=== PATIENT | female | born 1950 | race Caucasian/White ===

== ENCOUNTER → 2019-10-11 14:29 | Outpatient (CLI) | payer MEDICARE, OTHER, SELFPAY | PROVIDERS: PCP Family Medicine; Visit Provider Internal Medicine | DX: I10 Essential (primary) hypertension (principal); R42 Dizziness and giddiness; R55 Syncope and collapse | CPT/HCPCS: 93270 ==

== ENCOUNTER → 2019-10-21 09:15 | Outpatient (CLI) | payer MEDICARE, OTHER, SELFPAY ==
--- NOTE | 2019-10-21 09:16 | CA_ITS ---
APPROVED REPORT EXAM: Comprehensive 2D, Doppler, and color-flow Echocardiogram Technical Staff Engineer: Bel Frances RDCS Ht: 5 ft 6 in Wt: 128lbs BSA: 1.65 BP: 142/81 mmHg Indications: ABN EKG,PALPS,RENTERIA,HTN 2D Dimensions LVOT 2.05 cm (M/F) 1.5-2.5 M-Mode Dimensions RVDd 2.58 cm (0.9-2.6) LVDd 4.95 cm (3.5-5.7) LVDs 3.38 cm (3.5-5.7) IVSd 0.54 cm (0.6-1.1) PWd 0.57 cm (0.6-1.1) EF (Teich) 59.50% FS 31.70% EDV (Teich) 115.50 mL ESV (Teich) 46.80 mL LV Diastology E/A Ratio 1.15 Mitral Valve MV A Velocity 62.00 (40-130 cm/s) Left Ventricle Left atrium is mildly enlarged, left ventricle is normal size, there is no concentric left ventricular hypertrophy, visually estimated ejection fraction 55% with no regional wall motion abnormality, diastolic parameters are within normal range. Right Ventricle Right atrium and right ventricle are normal size and contractility. Aortic Valve Aortic valve is minimally thickened and fibrosed, there is no aortic stenosis or aortic insufficiency. Mitral Valve Mitral valve is grossly normal, there is mild mitral regurgitation. Tricuspid Valve Tricuspid valve grossly normal, there is mild tricuspid regurgitation, tricuspid regurgitation jet velocity is inadequate for calculation of the right ventricular systolic pressure. Pulmonic Valve Pulmonic valve is poorly visualized. Great Vessels Aortic root is normal size. Pericardium No significant pericardial effusion noted. Conclusion 1. Mildly enlarged left atrium, normal left ventricular size, visually estimated ejection fraction 55% with no regional wall motion abnormality, diastolic parameters are within normal range. 2. Mild mitral and tricuspid regurgitation. 3. No significant pericardial effusion noted. Electronically signed by : Shayan Garcia, 10/21/2019 13:49:34
== END ==
PROVIDERS: PCP Family Medicine; Visit Provider Internal Medicine Cardiovascular Disease
DX: I10 Essential (primary) hypertension (principal); R00.2 Palpitations; R42 Dizziness and giddiness; R53.83 Other fatigue
CPT/HCPCS: 93306

== ENCOUNTER → 2022-11-25 08:19 | Outpatient (CLI) | payer MEDICARE, OTHER, SELFPAY ==
[2022-11-25 09:03] LABS: Basophils # 0.1 K/mm3 (0-0.2); Basophils % 1.1 % (0.1-2.0); Eosinophils # 0.2 K/mm3 (0.0-0.4); Eosinophils % 2.1 % (0.1-12.0); Hemoglobin 14.5 g/dL (12.2-16.2); Lymphocytes # 2.8 K/mm3 (0.7-4.5); Lymphocytes % 35.3 % (10-50); Mean Corpuscular HGB Conc 35.3 g/dL (31.8-35.4); Mean Corpuscular Hemoglobin 33.1 pg (27.0-31.2); Mean Corpuscular Volume 93.8 fl (81-99); Mean Platelet Volume 8.9 fl (7.4-10.4); Monocytes # 0.4 K/mm3 (0.1-1.0); Monocytes % 5.7 % (1.7-9.3); Neutrophils # 4.4 K/mm3 (1.8-7.8); Neutrophils % 55.7 % (37.0-80.0); Platelet Count 226 K/mm3 (142-424); Red Blood Count 4.37 M/mm3 (4.20-5.40); White Blood Count 7.8 K/mm3 (4.8-10.8)
[2022-11-25 09:49] LABS: Alanine Aminotransferase 25 U/L (12-78); Albumin Level 4.7 g/dl (3.5-5.0); Albumin/Globulin Ratio 1.7 (1.1-1.8); Alkaline Phosphatase 51 U/L (38-126); Anion Gap 12.3 mEq/L (5-15); Aspartate Amino Transferase 49 U/L (14-36); Blood Urea Nitrogen 20 mg/dl (7-17); Calcium 9.5 mg/dl (8.4-10.2); Carbon Dioxide 28 mmol/L (22.0-30.0); Chloride 104 mmol/L (98-107); Estimated Glomerular Filt Rate 62 ml/min (>60); GFR (African American) 75 ML/MIN (>60); Globulin 2.8 g/dL (1.3-3.2); Glucose 91 mg/dl (74-100); Potassium 4.3 mmoL/L (3.5-5.1); Sodium 140 mmol/L (136-145); Total Protein,Serum 7.5 g/dl (6.3-8.2)
[2022-11-26 12:11] LABS: C-Reactive Protein, Cardiac 0.28 mg/L (0.00-3.00)
[2022-12-03 11:56] LABS: LDL-P 2290
[2022-12-03 11:57] LABS: HDL-C 51; LDL-C 213
[2022-12-03 11:58] LABS: Cholesterol, Total 292; Triglycerides 152
[2022-12-03 12:00] LABS: LDL Size 21.6
[2022-12-03 12:01] LABS: LP-IR Score <25
== END ==
PROVIDERS: PCP Family Medicine; Visit Provider Family Medicine
DX: E78.00 Pure hypercholesterolemia, unspecified (principal); I10 Essential (primary) hypertension
CPT/HCPCS: 36415; 80053; 83704; 85025; 86141

== ENCOUNTER 2024-01-01 15:12 | Observation (INO) | payer MEDICARE, OTHER, SELFPAY ==
[2024-01-01] VITALS (24 sets, daily range): BP systolic 142–240; BP diastolic 66–104; PULSE 47–65; RESP 15–18; TEMP 36.3–38.2; O2SAT 93–99; BMI 20.9
[2024-01-01 15:44] LABS: POC Glucose,Bedside 130 (70-110)
--- NOTE | 2024-01-01 15:46 | EXP.UTC ---
Discharge Plan Disposition Patient Disposition: Admitted Condition: Good Clinical Impressions Clinical Impression: Hypertensive emergency, Dizziness Discharge ED Provider: Zachary Hsu [facility] General Chief complaint: Recheck/Abnormal Lab/Rx Stated complaint: high bp dizziness shakey Mode of Arrival: Ambulatory Source of Information: Patient Time Seen by Provider: 01/01/24 15:46 Description of Symptoms (Recalled from Triage Doc. by RN): HTN, ALEMAN AT TIMES, BLURRY VISION AT TIMES, INCREASED STRESS LEVELS HEENT Symptoms (Recalled from RN notes): No Resp Symptoms (Recalled from RN notes): No Skin Symptoms (Recalled from RN notes): No MS Symptoms (Recalled from RN notes): No Functional Status (Recalled from RN notes): WNL History of Present Illness Provider Complaint: Patient states that she has been under some stress States that she sees Cardiology for HTN, states that for the last week she has been seeing that her blood pressure has continued to get higher, having blurry vision on and off, trouble concentrating, and feeling shaky and does not feel right States that she does feel like she is having some anxiety but not sure if one is causing the other States that her friend talked her into coming in States that she has been taking her bystolic but not her amlodipine and started back on the amlodipine about a week ago States today she feels worse and just doesnt feel like herself so she came in Related Data Home Medications ?Medication ?Instructions ?Recorded ?Confirmed amlodipine 5 mg tablet (Norvasc) 2.5 mg PO DAILY 08/17/23 01/01/24 Previous Rx's ?Medication ?Instructions ?Recorded Bystolic 20 mg tablet (nebivolol) 20 mg PO DAILY #90 tabs 04/24/23 Allergies Allergy/AdvReac Type Severity Reaction Status Date / Time No Known Allergies Allergy Verified 08/17/23 10:10 Worker's Comp Is this a Worker's Comp case?: No [facility] Disclaimer: The information contained in this section may have been updated after the patient was seen, as this information can be updated by other users. Medical History Abnormal EKG Palpitations Dyspnea Sinus bradycardia Daytime somnolence Social History (Updated 01/01/24 @ 20:16 by Kiki Dykes RN) Smoking Status: Former smoker years smoked: 30 how long ago did patient quit smokin YEARS AGO alcohol intake: never substance use type: denies use current occupational status: employed and disabled Travel in the last 8 weeks: None lives independently: Yes marital status: single number of children: 0 ROS Obtained: Yes All systems reviewed & no additional complaints except as documented and Yes Systems reviewed as appropriate & no additional complaints except as documented Constitutional Constitutional: Reports system reviewed and no additional complaints, except as documented, Reports as per HPI, Denies body ache, Denies chills, Denies fever(s) and Reports headache(s) Eyes Eyes: Reports system reviewed and no additional complaints, except as documented, Reports as per HPI and Reports blurry vision ENT Ears, Nose, Mouth, and Throat: Reports system reviewed and no additional complaints, except as documented, Reports as per HPI and Reports headache(s) Cardiovascular Cardiovascular: Reports system reviewed and no additional complaints, except as documented, Reports as per HPI and Denies chest pain Respiratory Respiratory: Reports system reviewed and no additional complaints, except as documented and Reports as per HPI Gastrointestinal Gastrointestingal: Reports system reviewed and no additional complaints, except as documented and as per HPI Musculoskeletal Musculoskeletal: Reports system reviewed and no additional complaints, except as documented and Reports as per HPI Neurologic Neurologic: Reports system reviewed and no additional complaints, except as documented, Reports as per HPI, Reports headache(s) and Reports other Comments: feels shaky and having trouble concentrating and just feels off Physical Exam General General appearance: alert and in no apparent distress Chest Chest inspection: Present normal inspection and symmetric chest wall rise Respiratory Respiratory exam: Present normal lung sounds bilaterally; Absent respiratory distress or wheezes Cardiovascular Cardiovascular exam: Present regular rate, normal rhythm and normal heart sounds Abdominal Exam Abdominal exam: Present soft and normal bowel sounds; Absent distention or tenderness Neurological Exam Neurological exam: Present alert, oriented X3 and normal gait Medical Decision Making Medical Records Screening: Per USPSTF and CDC recommendations, given the prevalence of disease in our region, it is our hospital?s policy to screen for HIV and viral Hepatitis for all patients aged 18 and over and those with ongoing risk factors. Raúl Inquiry Pt receiving controlled substance: No Raúl was queried for this patient: No Vital Signs: 01/01/24 15:43 Temperature 98 F Temperature Source Oral Pulse Rate [Left Radial] 61 Respiratory Rate 18 Blood Pressure [Left Arm] 218/79 H Blood Pressure Mean [Left Arm] 125 02 Sat by Pulse Oximetry 99 Lab Data Lab results reviewed: Yes I reviewed the patient's lab results. Lab Results 01/01/24 15:35: POC Glucose 130 H 01/01/24 16:22 01/01/24 16:22 Orders (Tests/Meds): ORDERS Category Date Time Status POC Glucose,Bedside Routine Lab 01/01/24 15:35 Completed Medical Decision Narrative: Discussed with patient about transfer to the ED for further work up and evaluation and patient initially refused after speaking with family patient now agreeable to go Spoke with ED and patient was moved to the ED for furhter evaluation
--- NOTE | 2024-01-01 16:15 | CT_ITS ---
PROCEDURE INFORMATION: Exam: CT Head Without Contrast Exam date and time: 01/01/2024 5:10 PM Age: 73 years old Clinical indication: Dizziness; Additional info: Systolic 240 - dizzy TECHNIQUE: Imaging protocol: Computed tomography of the head without contrast. Radiation optimization: All CT scans at this facility use at least one of these dose optimization techniques: automated exposure control; mA and/or kV adjustment per patient size (includes targeted exams where dose is matched to clinical indication); or iterative reconstruction. COMPARISON: CT ANGIO HEAD 01/01/2024 5:10 PM FINDINGS: Brain: No acute intracranial hemorrhage, midline shift or mass effect. Mild diffuse brain parenchymal volume loss. Minimal hypodensities within the cerebral white matter most consistent with chronic small-vessel ischemic changes. Cerebral ventricles: No ventriculomegaly. Paranasal sinuses: Visualized sinuses are unremarkable. No fluid levels. Mastoid air cells: Visualized mastoid air cells are well aerated. Bones: Unremarkable. No acute fracture. Soft tissues: Unremarkable. IMPRESSION: No acute intracranial findings.
--- NOTE | 2024-01-01 16:15 | CT_ITS ---
PROCEDURE INFORMATION: Exam: CTA Neck With Contrast Exam date and time: 01/01/2024 5:10 PM Age: 73 years old Clinical indication: Dizziness and giddiness; Additional info: Systolic 240 - dizzy TECHNIQUE: Imaging protocol: Computed tomographic angiography of the neck with contrast. Exam focused on the cervical segments of the vasculature. 3D rendering (Not supervised by radiologist): MIP and/or 3D reconstructed images were created by the technologist. Radiation optimization: All CT scans at this facility use at least one of these dose optimization techniques: automated exposure control; mA and/or kV adjustment per patient size (includes targeted exams where dose is matched to clinical indication); or iterative reconstruction. Contrast material: ISOVUE 370; Contrast volume: 80 ml; Contrast route: INTRAVENOUS (IV); COMPARISON: CT ANGIO HEAD 01/01/2024 5:10 PM FINDINGS: Right common carotid artery: Atherosclerosis at the carotid bulb without flow-limiting stenosis. No dissection or occlusion. Right internal carotid artery: No stenosis of the extracranial segment. No dissection or occlusion. Right external carotid artery: Mild stenosis at the origin. Left common carotid artery: Atherosclerosis at the carotid bulb without flow-limiting stenosis. No dissection or occlusion. Left internal carotid artery: Mild stenosis of the proximal cervical segment. No dissection or occlusion. Left external carotid artery: Atherosclerosis at the origin without flow-limiting stenosis. Right vertebral artery: Dominant vessel. No stenosis. No dissection or occlusion. Left vertebral artery: No stenosis. No dissection or occlusion. Soft tissues: Normal. No significant soft tissue swelling. Bones/joints: No acute fracture. IMPRESSION: Mild left internal carotid artery proximal cervical segment stenosis. REFERENCES: NASCET CRITERIA. The degree of stenosis in the cervical segment of the internal carotid artery is based on NASCET criteria. Normal is no stenosis. Mild is less than 50% stenosis. Moderate is 50-69% stenosis. Severe is 70% to 99% stenosis. Total occlusion is no detectable patent lumen.
--- NOTE | 2024-01-01 16:15 | CT_ITS ---
PROCEDURE INFORMATION: Exam: CTA Head With Contrast, Arteriography Exam date and time: 01/01/2024 5:10 PM Age: 73 years old Clinical indication: Dizziness and giddiness; Additional info: Systolic 240 - dizzy TECHNIQUE: Imaging protocol: Computed tomographic angiography of the head with contrast. Exam focused on the arteries. 3D rendering (Not supervised by radiologist): MIP and/or 3D reconstructed images were created by the technologist. Radiation optimization: All CT scans at this facility use at least one of these dose optimization techniques: automated exposure control; mA and/or kV adjustment per patient size (includes targeted exams where dose is matched to clinical indication); or iterative reconstruction. Contrast material: ISOVUE 370; Contrast volume: 80 ml; Contrast route: INTRAVENOUS (IV); COMPARISON: CT HEAD/BRAIN WO CON 01/01/2024 5:10 PM FINDINGS: ANTERIOR CIRCULATION: Right internal carotid artery: Intracranial segment is patent with no significant stenosis. No aneurysm. Right middle cerebral artery: No occlusion or significant stenosis. No aneurysm. Right anterior cerebral artery: No occlusion or significant stenosis. No aneurysm. Left internal carotid artery: Intracranial segment is patent with no significant stenosis. No aneurysm. Left middle cerebral artery: No occlusion or significant stenosis. No aneurysm. Left anterior cerebral artery: No occlusion or significant stenosis. No aneurysm. POSTERIOR CIRCULATION: Right vertebral artery: No occlusion or significant stenosis. No aneurysm. Left vertebral artery: No occlusion or significant stenosis. No aneurysm. Basilar artery: No occlusion or significant stenosis. No aneurysm. Right posterior cerebral artery: origin. No occlusion or significant stenosis. No aneurysm. Left posterior cerebral artery: No occlusion or significant stenosis. No aneurysm. Brain: No definite mass, mass effect, or midline shift. Cerebral ventricles: No ventriculomegaly. Bones/joints: Unremarkable. No acute fracture. Soft tissues: Unremarkable. IMPRESSION: No large vessel stenosis or occlusion.
--- NOTE | 2024-01-01 16:18 | ED_ITS ---
Discharge Plan Disposition Patient Disposition: Admitted Prescriptions Prescriptions: No Action amlodipine [Norvasc] 5 mg tablet 2.5 mg PO DAILY nebivolol [Bystolic] 20 mg tablet 20 mg PO DAILY Qty: 90 3RF Referrals Follow up/Referrals: Provider,Referral, [Primary Care Provider] - See instructions Clinical Impressions Clinical Impression: Hypertensive emergency, Dizziness Print Language Print Language: Faroese Discharge ED Provider: Zachary Hsu General Adult HPI General Chief complaint: Recheck/Abnormal Lab/Rx Stated complaint: high bp dizziness shakey Time Seen by Provider: 01/01/24 15:46 Mode of Arrival: Ambulatory Source of Information: Patient Limitations: No Limitations Description of Symptoms (Recalled from ER Triage Doc. by RN): Reports increase in blood pressure over the past week. States she has started to become dizzy with blurred vision. History of Present Illness HPI narrative: Patient is a 73-year-old female with past medical history of hypertension who presents emergency department for evaluation of hypertension with dizziness as a transfer from urgent care. Patient has not had any other comorbidities. Over the last 3 months she has been self titrating her blood pressure medications without measuring her blood pressure using the endpoint of feeling good. She was on Bystolic 20 mg and amlodipine 2.5 mg. Over the last 3 months she has not taken her amlodipine after she self titrated herself off as above. This morning she felt bad and took her Bystolic and 2.5 mg of amlodipine. She does not have any speech changes, any chest pain, abdominal pain, extremity weakness. She does have vague blurry vision uncorrected and does not have any focal visual field deficits. She only wears readers when needed. She also has nonspecific dizziness and jitteriness . The room is not spinning in a particular direction and she has not had reported gait changes. No trauma. No other acute complaints at this time. Related Data Home Medications ?Medication ?Instructions ?Recorded ?Confirmed amlodipine 5 mg tablet (Norvasc) 2.5 mg PO DAILY 08/17/23 01/01/24 Previous Rx's ?Medication ?Instructions ?Recorded Bystolic 20 mg tablet (nebivolol) 20 mg PO DAILY #90 tabs 04/24/23 Allergies Allergy/AdvReac Type Severity Reaction Status Date / Time No Known Allergies Allergy Verified 08/17/23 10:10 [facility] Disclaimer: The information contained in this section may have been updated after the patient was seen, as this information can be updated by other users. Medical History Abnormal EKG Palpitations Dyspnea Sinus bradycardia Daytime somnolence Social History Smoking Status: Never smoker alcohol intake: never substance use type: denies use current occupational status: employed and disabled Other Medical History Have you received the Pneumonia Vaccine: No ROS Obtained: Yes Systems reviewed as appropriate & no additional complaints except as documented Physical Exam General General appearance: alert and in no apparent distress Head Head exam: atraumatic and normocephalic Eye Eye exam: Present PERRL and EOMI ENT ENT exam: Present mucous membranes moist Neck Neck exam: Present normal inspection Chest Chest inspection: Present normal inspection and symmetric chest wall rise Respiratory Respiratory exam: Present normal lung sounds bilaterally; Absent respiratory distress Cardiovascular Cardiovascular exam: Present regular rate and normal rhythm Abdominal Exam Abdominal exam: Present soft Extremities Exam Extremities exam: Present normal inspection Neurological Exam Neurological exam: Present alert, CN II-XII intact and normal gait; Absent motor sensory deficit Psychiatric Psychiatric exam: Present normal affect Skin Skin exam: Present warm and dry Medical Decision Making Medical Records Screening: Per USPSTF and CDC recommendations, given the prevalence of disease in our region, it is our hospital?s policy to screen for HIV and viral Hepatitis for all patients aged 18 and over and those with ongoing risk factors. Raúl Inquiry Pt receiving controlled substance: No Vital Signs: 01/01/24 15:43 01/01/24 16:08 01/01/24 16:30 Temperature 98 F 97.9 F Temperature Source Oral Oral Pulse Rate Pulse Rate [Left Radial] 61 61 Respiratory Rate 18 18 Blood Pressure 179/77 H Blood Pressure [Left Arm] 218/79 H 240/104 H Blood Pressure Mean 111 Blood Pressure Mean [Left Arm] 125 149 Blood Pressure Source Blood Pressure Source [Left Arm] Automatic Cuff Blood Pressure Position [Left Arm] Sitting 02 Sat by Pulse Oximetry 99 98 Oxygen Delivery Method Room Air 01/01/24 16:37 01/01/24 16:43 01/01/24 16:48 Temperature Temperature Source Pulse Rate Pulse Rate [Left Radial] Respiratory Rate Blood Pressure 188/80 H 198/80 H 196/86 H Blood Pressure [Left Arm] Blood Pressure Mean 116 122 Blood Pressure Mean [Left Arm] Blood Pressure Source Manual Cuff/ Doppler Blood Pressure Source [Left Arm] Blood Pressure Position [Left Arm] 02 Sat by Pulse Oximetry Oxygen Delivery Method 01/01/24 16:52 01/01/24 17:04 Temperature Temperature Source Pulse Rate 52 L Pulse Rate [Left Radial] Respiratory Rate Blood Pressure 198/88 H 187/83 H Blood Pressure [Left Arm] Blood Pressure Mean Blood Pressure Mean [Left Arm] Blood Pressure Source Manual Cuff/ Doppler Blood Pressure Source [Left Arm] Blood Pressure Position [Left Arm] 02 Sat by Pulse Oximetry 98 Oxygen Delivery Method Room Air Lab Data Lab Results 01/01/24 15:35: POC Glucose 130 H 01/01/24 16:22: WBC 8.6, RBC 4.70, Hgb 15.3, Hct 42.9, MCV 91.2, MCH 32.5 H, M CHC 35.7 H, RDW 13.4, Plt Count 227, MPV 8.2, Neut % (Auto) 71.9, Lymph % (Auto) 21.6, Meagher % (Auto) 4.5, Eos % (Auto) 1.1, Baso % (Auto) 0.8, Neut # (Auto) 6.2, Lymph # (Auto) 1.9, Meagher # (Auto) 0.4, Eos # (Auto) 0.1, Baso # (Auto) 0.1, Sodium 140, Potassium 4.2, Chloride 103, Carbon Dioxide 27, Anion Gap 14.2, BUN 31 H, Creatinine 1.00, Estimated Creat Clear 48, Estimated GFR 55 L, Est GFR ( Amer) 66, Glucose 113 H, Calcium 10.1, Total Bilirubin 0.7, AST 42 H, ALT 29, Alkaline Phosphatase 86, Troponin I < 0.01, Total Protein 7.9, Albumin 5.0, Globulin 2.9, Albumin/Globulin Ratio 1.7 01/01/24 16:22 01/01/24 16:22 Orders (Tests/Meds): ED MEDICATIONS Generic Name Dose Route Start Last Admin Trade Name Freq PRN Reason Stop Dose Admin Nicardipine HCl 25 mg/ Sodium 250 mls @ 50 mls/hr 01/01/24 16:17 01/01/24 17:48 Chloride IV 01/31/24 16:16 0 mg/hr .Q5H ELMA 0 mls/hr Infusion Protocol 5 MG/HR Discontinued Medications Generic Name Dose Route Start Last Admin Trade Name Dylon PRN Reason Stop Dose Admin Iopamidol 80 ml 01/01/24 17:09 01/01/24 17:10 Iopamidol-370 (76%);100ml Bottle IV 01/01/24 17:10 80 ml ONCE ONE Administration Sodium Chloride 10 ml 01/01/24 17:09 01/01/24 17:10 Sodium Chloride 0.9% 10ml Syr (Rad Only) IV 01/01/24 17:10 10 ml ONCE ONE Administration Sodium Chloride 50 ml 01/01/24 17:09 01/01/24 17:10 0.9 % Sodium Chloride 50 Ml Vial IV 01/01/24 17:10 50 ml ONCE ONE Administration ORDERS Category Date Time Status CT angio head Stat Cat Scan 01/01/24 16:[address] angio neck Stat Cat Scan 01/01/24 16:[address] head/brain wo con Stat Cat Scan 01/01/24 16:15 Completed CBC w/Auto Diff [Complete Blood Count Auto Diff] Stat Lab 01/01/24 16:22 Completed CMP [Comprehensive Metabolic Panel] Stat Lab 01/01/24 16:22 Completed HIV (1&2) Antibody Rapid Stat Lab 01/01/24 16:22 Received Hep C Ab with Reflex to RNA Stat Lab 01/01/24 16:22 Received POC Glucose,Bedside Routine Lab 01/01/24 15:35 Completed Trop I [Troponin I] Stat Lab 01/01/24 16:22 Completed Troponin I Q3H Lab 01/01/24 19:30 Ordered Troponin I Q3H Lab 01/01/24 22:30 Ordered ECG Data Tracing #1: Independently interpreted by me rate is 46, rhythm is regular, no ST elevation in anatomical contiguous leads, nonspecific changes in the inferior leads with wandering, QTc 391 Medical Decision Narrative: In summary patient is 73-year-old female past medical history described above who presents emergency department for evaluation of elevated blood pressure and nonspecific dizziness in the setting of self titrating her blood pressure medications without objective hemodynamic data. Patient is hemodynamically stable nontoxic-appearing upon arrival, extremely hypertensive 240 systolic followed by 230 upon my assessment. Given this patient has hypertensive emergency. Patient will be started on Cardene with a systolic goal of 170 as to not precipitously lower her blood pressure too low to increase her chance of ischemia. Differential also includes press, cervical artery dissection, myocardial injury, among others. Workup be conducted with hematologic labs, EKG, noncontrasted CT scan head, CTA of the head neck. Initial workup reviewed by me, hematologic labs are nonactionable, initial troponin undetectably low. Noncontrasted CT scan of the head informally visualized by me, no large acute intracranial hemorrhage. Formal read shows no acute pathology, CTA head and neck shows mild left ICA stenosis that in my opinion is inconsequential to her symptoms. Upon repeat evaluation patient had large resolution of her symptoms. Given the need for transition to oral medication and ensuring compliance the case was discussed with hospital medicine regarding management they will meet the patient their service for continued evaluation at this time. Critical Care Critical Care Time Critical Care Time: Yes Attestation: On 01/01/24, the high probability of a clinically significant, sudden or life threatening deterioration of the following system(s) required my full and direct attention, intervention and personal management. The time I documented below is in addition to time spent performing reported procedures but includes the following listed in this critical care notation. Total Time Total Critical Care Time: 35
--- NOTE | 2024-01-01 16:20 | ECG_ITS ---
APPROVED REPORT Exam: Resting ECG HR:46 bpm ECG Measurements Heart Rate 46 AXES MO 160 P 85 QRSd 86 QRS 71 QT 431 T 38 QTc 391 Conclusion SINUS BRADYCARDIA INDETERMINATE AXIS POSSIBLE RIGHT VENTRICULAR CONDUCTION DELAY [RSR (QR) IN V1/V2] NONSPECIFIC T-WAVE ABNORMALITY BORDERLINE ECG Electronically signed by : KAMERON ALONSO, 01/01/2024 23:34:19
--- NOTE | 2024-01-01 16:30 | PC.NURSE ---
Checked with Rosalio Estrella PAC for pain medication prior to d/c. Verbal order for fentanyl 80 mcg ivp. Report given to Stan Licea EMT-P
[2024-01-01 16:36] LABS: Basophils # 0.1 K/mm3 (0-0.2); Basophils % 0.8 % (0.1-2.0); Eosinophils # 0.1 K/mm3 (0.0-0.4); Eosinophils % 1.1 % (0.1-12.0); Hematocrit 42.9 % (37.0-47.0); Hemoglobin 15.3 g/dL (12.2-16.2); Lymphocytes # 1.9 K/mm3 (0.7-4.5); Lymphocytes % 21.6 % (10-50); Mean Corpuscular HGB Conc 35.7 g/dL (31.8-35.4); Mean Corpuscular Hemoglobin 32.5 pg (27.0-31.2); Mean Corpuscular Volume 91.2 fl (81-99); Mean Platelet Volume 8.2 fl (7.4-10.4); Monocytes # 0.4 K/mm3 (0.1-1.0); Monocytes % 4.5 % (1.7-9.3); Neutrophils # 6.2 K/mm3 (1.8-7.8); Neutrophils % 71.9 % (37.0-80.0); Platelet Count 227 K/mm3 (142-424); Red Cell Distribution Width 13.4 % (11.5-17.5); White Blood Count 8.6 K/mm3 (4.8-10.8)
--- NOTE | 2024-01-01 16:37 | PC.NURSE ---
visual acuity test: Both 20/40 L:20/40 R:20/50 patient states she had Lasik eye surgery, she believes it was in left eye.
[2024-01-01 16:38] LABS: Chloride 103 mmol/L (98-107)
[2024-01-01 16:39] LABS: Potassium 4.2 mmoL/L (3.5-5.1); Sodium 140 mmol/L (136-145)
[2024-01-01 16:42] LABS: Alanine Aminotransferase 29 U/L (12-78); Albumin/Globulin Ratio 1.7 (1.1-1.8); Alkaline Phosphatase 86 U/L (38-126); Anion Gap 14.2 mEq/L (5-15); Aspartate Amino Transferase 42 U/L (14-36); Bilirubin,Total 0.7 mg/dl (0.2-1.3); Blood Urea Nitrogen 31 mg/dl (7-17); Calcium 10.1 mg/dl (8.4-10.2); Carbon Dioxide 27 mmol/L (22.0-30.0); Creatinine Clearance Estimated 48 mL/min (50-200); Estimated Glomerular Filt Rate 55 ml/min (>60); GFR (African American) 66 ML/MIN (>60); Globulin 2.9 g/dL (1.3-3.2); Glucose 113 mg/dl (74-100); Total Protein,Serum 7.9 g/dl (6.3-8.2)
--- NOTE | 2024-01-01 16:54 | PC.NURSE ---
updated MD about pt bp and the change, orders that pt to be started on cardene drip with goal sbp of 160.
[2024-01-01 16:57] LABS: Troponin I < 0.01 ng/ml (0.00-0.034)
[2024-01-01] MEDS: NICARDIPINE HCL 25 MG in 0.9 % SODIUM CHLORIDE 240 ML 50 MG IV (17:06)
[2024-01-01] MEDS: SODIUM CHLORIDE 0.9% 10ML SYR (RAD ONLY) 10 ML IV (17:10)
[2024-01-01] MEDS: 0.9 % SODIUM CHLORIDE 50 ML VIAL IV (17:10)
[2024-01-01] MEDS: IOPAMIDOL-370 (76%);100ML BOTTLE 80 ML IV (17:10)
[2024-01-01 18:48] LABS: HIV (1&2) Antibody Rapid NONREACTIVE (NONREACTIVE)
--- NOTE | 2024-01-01 18:51 | P.HP_ITS ---
History of Present Illness *Admission Date: 01/01/24 *Reason for visit:: Malignant Hypertension *History of present illness: 73-year-old female patient with PMH of HTN who is admitted to the hospital for malignant HTN following one week of an intractable headache associated with fluctuating blood pressures that she was attempting to manage at home with her own dosage of amlodipine and Bystolic. The patient reports that she stopped taking amlodipine approximately 4 months ago of her own volition because she felt fine . She reports monitoring her blood pressure at home when she feels like she should, she does not keep a record and cannot recall what her blood pressures have been when she makes the adjustments to her doses. The patient states that she has had an increased stress level recently due to some difficulties with her [employer] store and feels that her anxiety about this is c ontributing to her hypertension. She also states that the amlodipine contributes to her anxiety and makes my legs shake . The patient reports seeing an integrative medicine provider in [place] but does not have a PCP and has not seen one for a while . [facility] Disclaimer: The information contained in this section may have been updated after the patient was seen, as this information can be updated by other users. Medical History Abnormal EKG Palpitations Dyspnea Sinus bradycardia Daytime somnolence Social History (Updated 01/01/24 @ 20:16 by Kiki Dykes RN) Smoking Status: Former smoker years smoked: 30 how long ago did patient quit smokin YEARS AGO alcohol intake: never substance use type: denies use current occupational status: employed and disabled Travel in the last 8 weeks: None lives independently: Yes marital status: single number of children: 0 Other Medical History Have you received the Pneumonia Vaccine: No Review of Systems Review of Systems Review of systems:: pertinent systems reviewed and negative unless documented below Constitutional Constitutional: Reports headache(s) ENT Ears, Nose, Mouth, and Throat: Reports headache(s) *Neurologic Neurologic: Reports system reviewed and no additional complaints, except as documented, Reports as per HPI, Reports headache(s) and Reports other Meds Home Medications and Allergies Home Medications ?Medication ?Instructions ?Recorded ?Confirmed ?Type Bystolic 20 mg tablet (nebivolol) 20 mg PO DAILY #90 tabs 04/24/23 01/02/24 Rx amlodipine 5 mg tablet (Norvasc) 2.5 mg PO DAILY 08/17/23 01/02/24 History New Prescriptions to Start Prescriptions: Allergies Allergy/AdvReac Type Severity Reaction Status Date / Time No Known Allergies Allergy Verified 08/17/23 10:10 Exam Data for Last 24 hours Vital signs and Labs for Last 24 Hours: Temp Pulse Resp BP Pulse Ox O2 Del Method 97.9 F 55 L 18 173/76 H 98 Room Air 01/01/24 16:08 01/01/24 18:45 01/01/24 16:08 01/01/24 18:45 01/01/24 18:45 01/01/24 18:45 Laboratory Results - last 24 hr 01/01/24 15:35: POC Glucose 130 H 01/01/24 16:22: WBC 8.6, RBC 4.70, Hgb 15.3, Hct 42.9, MCV 91.2, MCH 32.5 H, MCHC 35.7 H, RDW 13.4, Plt Count 227, MPV 8.2, Neut % (Auto) 71.9, Lymph % (Auto) 21.6, [place] % (Auto) 4.5, Eos % (Auto) 1.1, Baso % (Auto) 0.8, Neut # (Auto) 6.2, Lymph # (Auto) 1.9, [place] # (Auto) 0.4, Eos # (Auto) 0.1, Baso # (Auto) 0.1, Sodium 140, Potassium 4.2, Chloride 103, Carbon Dioxide 27, Anion Gap 14.2, BUN 31 H, Creatinine 1.00, Estimated Creat Clear 48, Estimated GFR 55 L, Est GFR ( Amer) 66, Glucose 113 H, Calcium 10.1, Total Bilirubin 0.7, AST 42 H, ALT 29, Alkaline Phosphatase 86, Troponin I < 0.01, Total Protein 7.9, Albumin 5.0, Globulin 2.9, Albumin/Globulin Ratio 1.7, HIV 1&2 Antibody Rapid Nonreactive I & O for Last 24 hours: Intake & Output 12/29/23 12/30/23 12/31/23 01/01/24 23:59 23:59 23:59 23:59 Intake Total 46 / 46 Balance 46 / 46 Weight 58.967 kg Constitutional Constitutional: no acute distress and thin *Routine HEENT Exam Head: Present normocephalic and atraumatic Eye: Present EOMI ENT: Present mucous membranes moist and dentition normal *Routine Neck Exam Neck: Present full ROM *Routine Respiratory Exam Respiratory: Present normal respiratory effort, able to speak in complete sentences and symmetric chest movement; Absent respiratory distress *Routine Cardiovascular Exam Cardiovascular: Present RRR; Absent JVD *Routine Abdominal Exam Abdominal: Present soft; Absent tenderness or guarding *Routine Rectal Exam Rectal:: deferred *Routine Genitalia Exam Genitalia:: deferred *Routine Extremities Exam Extremities: Present full ROM Routine Back/Spine/Pelvis Exam Back/Spine: Present full ROM *Routine Skin Exam Skin: Present intact, dry and warm *Routine Neurological Exam Neurological: Present alert, oriented X3, moving all extremities and normal speech Routine Psychiatric Exam Psychiatric: Present anxious H&P: Result Imaging and Cardiology Head CTA: Status: image reviewed by me and final report (No large vessel stenosis or occlusion. ) Neck CTA: Status: image reviewed by me and final report (Mild left internal carotid artery proximal cervical segment stenosis. ) Head CT: Status: image reviewed by me and final report (No acute intracranial findings. ) EKG: Status: image reviewed by me and final report (Sinus Bradycardia. Nonspecific T-Wave abnormality.) Assessment and Plan *Assessment and plan (1) Hypertensive emergency: Status: Acute Category: Medical Code(s): I16.1 - Hypertensive emergency (2) Sinus bradycardia: Status: Chronic Category: Medical Code(s): R00.1 - Bradycardia, unspecified (3) Anxiety: Status: Acute Category: Medical Code(s): F41.9 - Anxiety disorder, unspecified Plan 73-year-old female who presented with malignant hypertension. Case discussed with ER physician, request admission for management and monitoring, Medicine agreed to admit. Blood pressure doing better after initiation of nicardipine. Monitor overnight, Problems as follows: Malignant HTN Continue Cardene infusion. Monitor for toxicity. Cardiac/VS/O2 monitoring. Trend Labs. CT Head - No acute intracranial findings. CTA Head/Neck reviewed - No large vessel stenosis or occlusion. Mild left internal carotid artery proximal cervical segment stenosis. Sinus Bradycardia TSH pending. Cardiac/VS/O2 monitoring. Consider Cardiology consult should the patient become symptomatic. -Repeat CBC, CMP, magnesium and troponin ordered for the morning. Anxiety 0.5mg Ativan PO QHS PRN. Recommend F/U OP with PCP for further evaluation. Full code Regular diet I have personally reviewed pertinent laboratory data and imaging results as well as documentation in the patient's EMR. Laboratory and imaging orders per the above plan have been addressed. Home medications have been reviewed. Patient's case, assessment and plan have been discussed on this date with patient and RN. Medical Decision Making: Patient presenting with ALEMAN, HTN, Bradycardia. Case discussed with attending physician, decision made to admit to the hospital. Rounded on patient after nurse practitioner. Personally examined and interviewed patient. Agree with exam findings and care plan as documented.
--- NOTE | 2024-01-01 19:31 | PC.NURSE ---
pc from lab requesting us to draw repeat trop, I spoke with Dr. Hsu and said to cancel the order. Lab informed
--- NOTE | 2024-01-01 19:40 | PC.NURSE ---
Report called to soo
--- NOTE | 2024-01-01 19:54 | PC.NURSE ---
Pt arrived to floor via wheelchair @19:45
[2024-01-01] MEDS: LORazepam 0.5MG TABLET 0.5 MG PO (23:09)
[2024-01-02] VITALS (14 sets, daily range): BP systolic 113–158; BP diastolic 52–78; PULSE 32–61; RESP 12–20; TEMP 36.1–36.8; O2SAT 94–98; BMI 19.8
--- NOTE | 2024-01-02 06:06 | PC.NURSE ---
Pt A/O x4. 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 Cardene gtt has remained held since arriving to floor. SBP has remained <170. Pt has been bradycardic with lowest HR noted to be 32, pt awake and asymptomatic at that time. Pt also noted to have a 3 beat run of VTACH shortly after dropping this low. Pt has ambulated independently to throughout shift, tolerating well. No complaints of dizziness or pain. Pt did state she was anxious over her hypertension, ativan administered and pt stated it helped her. Pt has rested comfortably throughout shift. Call light within reach.
[2024-01-02 06:33] LABS: Basophils # 0.1 K/mm3 (0-0.2); Basophils % 0.6 % (0.1-2.0); Eosinophils # 0.1 K/mm3 (0.0-0.4); Eosinophils % 1.8 % (0.1-12.0); Hematocrit 42.6 % (37.0-47.0); Hemoglobin 14.5 g/dL (12.2-16.2); Lymphocytes # 2.5 K/mm3 (0.7-4.5); Lymphocytes % 31.8 % (10-50); Mean Corpuscular HGB Conc 34.2 g/dL (31.8-35.4); Mean Corpuscular Hemoglobin 32.2 pg (27.0-31.2); Mean Corpuscular Volume 94.3 fl (81-99); Mean Platelet Volume 8.2 fl (7.4-10.4); Monocytes # 0.5 K/mm3 (0.1-1.0); Monocytes % 6.2 % (1.7-9.3); Neutrophils # 4.7 K/mm3 (1.8-7.8); Neutrophils % 59.6 % (37.0-80.0); Platelet Count 205 K/mm3 (142-424); Red Blood Count 4.51 M/mm3 (4.20-5.40); Red Cell Distribution Width 13.2 % (11.5-17.5); White Blood Count 7.8 K/mm3 (4.8-10.8)
[2024-01-02 06:53] LABS: Alanine Aminotransferase 23 U/L (12-78); Albumin Level 4.1 g/dl (3.5-5.0); Albumin/Globulin Ratio 1.9 (1.1-1.8); Alkaline Phosphatase 66 U/L (38-126); Aspartate Amino Transferase 33 U/L (14-36); Bilirubin,Total 0.7 mg/dl (0.2-1.3); Blood Urea Nitrogen 26 mg/dl (7-17); Calcium 9.2 mg/dl (8.4-10.2); Carbon Dioxide 26 mmol/L (22.0-30.0); Chloride 107 mmol/L (98-107); Creatinine Clearance Estimated 46 mL/min (50-200); Estimated Glomerular Filt Rate 55 ml/min (>60); GFR (African American) 66 ML/MIN (>60); Globulin 2.2 g/dL (1.3-3.2); Glucose 83 mg/dl (74-100); Magnesium 2.2 mg/dl (1.6-2.3); Sodium 140 mmol/L (136-145); Total Protein,Serum 6.3 g/dl (6.3-8.2)
[2024-01-02 07:22] LABS: Thyroid Stimulating Hormone 3.46 uIU/mL (0.465-4.68)
--- NOTE | 2024-01-02 08:06 | ECG_ITS ---
APPROVED REPORT Exam: Resting ECG HR:52 bpm ECG Measurements Heart Rate 52 AXES RI 164 P 79 QRSd 86 QRS -19 QT 443 T 50 QTc 422 Conclusion SINUS BRADYCARDIA LOW QRS VOLTAGE IN PRECORDIAL LEADS [QRS DEFLECTION Anterior changes noted.. unchaged from yesterdays tracing UNCONFIRMED REPORT Electronically signed by : Cam Daley MD 01/04/2024 08:32:08
[2024-01-02 08:18] LABS: HCV Ab Non Reactive (Non Reactive)
[2024-01-02 08:56] LABS: Troponin I 0.17 ng/ml (0.00-0.034)
[2024-01-02] MEDS: AMLODIPINE 5MG TABLET 2.5 MG PO (09:05)
--- NOTE | 2024-01-02 09:09 | HMH.PHAINT1 ---
Pharmacy Intervention Comments: MEDICATION RECONCILIATION COMPLETE USING LIST FROM MOST RECENT CARDIOLOGY OFFICE VISIT AND EXTERNAL PHARMACY FILL HISTORY.
[2024-01-02] MEDS: ASPIRIN 325MG TABLET 325 MG PO (13:39)
--- NOTE | 2024-01-02 16:35 | PC.NURSE ---
PT IS RESTING IN BED. ALERT AND ORIENTED X4. EATING AND DRINKING WELL. NO COMPLAINTS OF CP/SOA. PT HAS BEEN SJAROD ON THE MONITOR. LUNG SOUNDS CLEAR. ABDOMEN SOFT/NON TENDER WITH ACTIVE BOWEL SOUNDS. VSS. WILL CONTINUE TO MONITOR.
--- NOTE | 2024-01-02 19:33 | EXP.ACUTE.PN ---
Subjective *Date: 01/02/24 *Time: 19:33 Interval history: Blood pressure better controlled this morning. Long conversation with patient about her medications and self titration. Denies any chest pain. Denies any shortness of breath. Denies having had any chest pain throughout her entire episode. No nausea or vomiting. Reviewed telemetry, sinus bradycardia. EKG obtained with auto read of slight elevation of T wave in anterior leads however given patient's absence of pain, low concern for STEMI. Consistent with previous EKGs per review of chart -Review of chart shows normal echo from 2019. Also had clean coronaries on heart cath performed in [place] in 2019. No risk factors other than hypertension. Non-smoker. Heart score on admission 3, low risk Medical Exam Vital signs and Labs for Last 24 Hours: Vital Signs Temp Pulse Pulse Resp BP BP Pulse Ox 01/02/24 18:44 01/02/24 16:43 01/02/24 16:00 45 L 01/02/24 15:29 97.6 F 52 L 18 133/78 98 01/02/24 15:00 01/02/24 13:00 01/02/24 12:00 60 01/02/24 11:40 97.8 F 48 L 18 133/67 96 01/02/24 11:00 01/02/24 08:12 01/02/24 08:00 60 01/02/24 08:00 01/02/24 08:00 96.9 F L 61 20 117/52 L 96 01/02/24 06:47 01/02/24 06:06 32 L 01/02/24 06:00 45 L 14 145/66 H 96 01/02/24 05:00 01/02/24 04:00 46 L 95 01/02/24 04:00 46 L 01/02/24 04:00 50 L 13 138/69 98 01/02/24 03:46 98.3 F 01/02/24 03:00 01/02/24 02:30 37 L 01/02/24 02:00 43 L 16 113/53 L 96 01/02/24 00:55 01/02/24 00:00 45 L 01/02/24 00:00 98.1 F 44 L 12 158/74 H 94 L 01/01/24 23:00 01/01/24 22:00 47 L 16 160/70 H 93 L 01/01/24 21:00 01/01/24 20:18 55 L 97 01/01/24 20:10 97.3 F L 53 L 15 168/74 H 94 L 01/01/24 20:00 61 01/01/24 20:00 100.8 F H 49 L 17 174/81 H 97 01/01/24 19:38 97.9 F 50 L 18 174/81 H O2 Del Method 01/02/24 18:44 Room Air 01/02/24 16:43 Room Air 01/02/24 16:00 01/02/24 15:29 Room Air 01/02/24 15:00 Room Air 01/02/24 13:00 Room Air 01/02/24 12:00 01/02/24 11:40 Room Air 01/02/24 11:00 Room Air 01/02/24 08:12 Room Air 01/02/24 08:00 01/02/24 08:00 Room Air 01/02/24 08:00 Room Air 01/02/24 06:47 Room Air 01/02/24 06:06 01/02/24 06:00 Room Air 01/02/24 05:00 Room Air 01/02/24 04:00 Room Air 01/02/24 04:00 01/02/24 04:00 Room Air 01/02/24 03:46 01/02/24 03:00 Room Air 01/02/24 02:30 01/02/24 02:00 Room Air 01/02/24 00:55 Room Air 01/02/24 00:00 01/02/24 00:00 Room Air 01/01/24 23:00 Room Air 01/01/24 22:00 Room Air 01/01/24 21:00 Room Air 01/01/24 20:18 Room Air 01/01/24 20:10 Room Air 01/01/24 20:00 01/01/24 20:00 Room Air 01/01/24 19:38 Room Air Intake and Output 01/02/24 01/02/24 01/02/24 07:59 15:59 23:59 Intake Total 1020 / 1360 340 / 1360 Output Total 0 / 0 0 / 0 0 / 0 Balance 0 / 1360 1020 / 1360 340 / 1360 Intake: Intake, Oral Amount 1020 / 1360 340 / 1360 Output: Output, Urine Amount 0 / 0 0 / 0 0 / 0 Other: Number of Unmeasured Voids 1 2 Number of Bowel Movements 1 Weight 56.109 kg Patient Weight 01/02/24 23:59 Weight 56.109 kg Laboratory Results - last 24 hr 01/01/24 16:22: Hepatitis C Antibody Non reactive 01/02/24 05:42: WBC 7.8, RBC 4.51, Hgb 14.5, Hct 42.6, MCV 94.3, MCH 32.2 H, MCHC 34.2, RDW 13.2, Plt Count 205, MPV 8.2, Neut % (Auto) 59.6, Lymph % (Auto) 31.8, [place] % (Auto) 6.2, Eos % (Auto) 1.8, Baso % (Auto) 0.6, Neut # (Auto) 4.7, Lymph # (Auto) 2.5, [place] # (Auto) 0.5, Eos # (Auto) 0.1, Baso # (Auto) 0.1, Sodium 140, Potassium 4.0, Chloride 107, Carbon Dioxide 26, Anion Gap 11.0, BUN 26 H, Creatinine 1.00, Estimated Creat Clear 46, Estimated GFR 55 L, Est GFR ( Amer) 66, Glucose 83 D, Calcium 9.2, Magnesium 2.2, Total Bilirubin 0.7, AST 33, ALT 23, Alkaline Phosphatase 66, Troponin I 0.17 H, Total Protein 6.3, Albumin 4.1 D, Globulin 2.2, Albumin/Globulin Ratio 1.9 H, TSH 3.46 01/02/24 12:00: Troponin I 0.10 H I & O for Labs for Last 24 Hours: Intake & Output 12/30/23 12/31/23 01/01/24 01/02/24 23:59 23:59 23:59 23:59 Intake Total 46 / 46 1360 / 1360 Output Total 0 / 0 Balance 46 46 1360 / 1360 Weight 56.608 kg 56.109 kg Constitutional: Present no acute distress, thin and cooperative Head: Present atraumatic and normocephalic Respiratory: Present normal respiratory effort; Absent rhonchi, wheezes or crackles Cardiac: Present Regular Rhythm and Bradycardia GI: Present soft and normal bowel sounds; Absent distention or tenderness Extremities: Present normal inspection and full ROM Skin: Present intact; Absent erythema Neuro: Present Grossly Intact, alert, awake, oriented x 3 and moves all extremities Assessment and Plan *Assessment and plan (1) Hypertensive emergency: Status: Acute Category: Medical Code(s): I16.1 - Hypertensive emergency (2) Sinus bradycardia: Status: Chronic Category: Medical Code(s): R00.1 - Bradycardia, unspecified (3) Anxiety: Status: Acute Category: Medical Code(s): F41.9 - Anxiety disorder, unspecified Plan 73-year-old female who presented with malignant hypertension. Admitted to medicine for further management. Blood pressure doing better today. Repeat troponin obtained on rounds, added to morning labs. Troponin was detectable but patient is asymptomatic. Will continue to monitor today and reevaluate in the morning. Initiated on aspirin. Blood pressure doing better. Extensive conversation about blood pressure treatment today with patient. Problems addressed as follows: Malignant HTN Sinus bradycardia -Resume amlodipine 2.5 mg daily. Initiate carvedilol 6.25 mg twice daily as formulary conversion for home nebivolol -Monitor on telemetry. Serial troponin. Initial on presentation less than 0.01. Repeat this morning 0.17, repeat 3 hours later 0.1. Trending down. Asymptomatic. -Repeat CBC, CMP, magnesium and troponin ordered for the morning. Will obtain repeat EKG in the morning as well. -Blood pressure with systolics originally 140-160 this morning. Improved to 130 by afternoon -TSH normal at 3.5 - Consider Cardiology consult should the patient become symptomatic versus close outpatient follow-up the beginning of the week -Reviewed patient's note with cardiology from August, recommend yearly follow-up. On amlodipine and nebivolol at that time. -Hemoglobin 14, kidney function normal with BUN 26, creatinine 1. Stable on room air. Anxiety 0.5mg Ativan PO QHS PRN. Recommend F/U OP with PCP for further evaluation. Full code Regular diet
[2024-01-02] MEDS: LORazepam 0.5MG TABLET 0.5 MG PO (20:32)
[2024-01-03] VITALS: BP 123/69; PULSE 48; PULSE 55; RESP 17; TEMP 36.6; O2SAT 99
[2024-01-03 04:00] VITALS: BP 119/71; PULSE 53; PULSE 58; RESP 16; TEMP 36.6; O2SAT 97
--- NOTE | 2024-01-03 05:02 | PC.NURSE ---
Pt A&OX4 and has tolerated room air. Lung sounds clear and bowel sounds active. Pt has remained bradycardic throughout the shift. She has denied any pain or SOA. She has ambulated to the bathroom independently. No complaints at this time, call light within reach.
[2024-01-03 06:46] LABS: Basophils # 0.1 K/mm3 (0-0.2); Basophils % 1.2 % (0.1-2.0); Eosinophils # 0.2 K/mm3 (0.0-0.4); Eosinophils % 2.3 % (0.1-12.0); Hematocrit 41.8 % (37.0-47.0); Hemoglobin 14.4 g/dL (12.2-16.2); Lymphocytes # 1.9 K/mm3 (0.7-4.5); Lymphocytes % 29.5 % (10-50); Mean Corpuscular HGB Conc 34.5 g/dL (31.8-35.4); Mean Corpuscular Hemoglobin 32.6 pg (27.0-31.2); Mean Corpuscular Volume 94.5 fl (81-99); Mean Platelet Volume 8.3 fl (7.4-10.4); Monocytes # 0.4 K/mm3 (0.1-1.0); Monocytes % 5.5 % (1.7-9.3); Neutrophils % 61.5 % (37.0-80.0); Platelet Count 200 K/mm3 (142-424); Red Blood Count 4.42 M/mm3 (4.20-5.40); Red Cell Distribution Width 13.4 % (11.5-17.5); White Blood Count 6.5 K/mm3 (4.8-10.8)
[2024-01-03 07:01] LABS: Troponin I 0.05 ng/ml (0.00-0.034)
[2024-01-03 07:09] LABS: Albumin Level 3.8 g/dl (3.5-5.0); Chloride 106 mmol/L (98-107); Potassium 4.1 mmoL/L (3.5-5.1); Sodium 140 mmol/L (136-145)
[2024-01-03 07:12] LABS: Alanine Aminotransferase 19 U/L (12-78); Albumin/Globulin Ratio 1.7 (1.1-1.8); Alkaline Phosphatase 57 U/L (38-126); Anion Gap 11.1 mEq/L (5-15); Aspartate Amino Transferase 27 U/L (14-36); Bilirubin,Total 0.7 mg/dl (0.2-1.3); Blood Urea Nitrogen 33 mg/dl (7-17); Carbon Dioxide 27 mmol/L (22.0-30.0); Creatinine Clearance Estimated 46 mL/min (50-200); Estimated Glomerular Filt Rate 55 ml/min (>60); GFR (African American) 66 ML/MIN (>60); Globulin 2.3 g/dL (1.3-3.2); Total Protein,Serum 6.1 g/dl (6.3-8.2)
[2024-01-03 07:13] LABS: Calcium 9.6 mg/dl (8.4-10.2); Glucose 86 mg/dl (74-100); Magnesium 2.2 mg/dl (1.6-2.3)
--- NOTE | 2024-01-03 07:34 | ECG_ITS ---
APPROVED REPORT Exam: Resting ECG HR:53 bpm ECG Measurements Heart Rate 53 AXES MA 162 P 78 QRSd 89 QRS -61 QT 457 T 58 QTc 440 Conclusion SINUS BRADYCARDIA LOW QRS VOLTAGE IN PRECORDIAL LEADS [QRS DEFLECTION < 1.0 mV IN CHEST LEADS] POSSIBLE RIGHT VENTRICULAR CONDUCTION DELAY [RSR (QR) IN V1/V2] LEFT ANTERIOR FASCICULAR BLOCK [QRS AXIS <= -45, QR IN I, RS IN II] POSSIBLE ANTERIOR MYOCARDIAL INFARCTION , PROBABLY OLD [30 ms Q WAVE IN V3/V4, OR R < 0.2 mV IN V4] ABNORMAL ECG UNCONFIRMED REPORT Electronically signed by : Cam Daley MD 01/04/2024 08:30:26
[2024-01-03] MEDS: ASPIRIN EC 81MG TABLET 81 MG PO (07:59)
[2024-01-03] MEDS: CARVEDILOL 6.25MG TABLET 6.25 MG PO (07:59)
[2024-01-03] MEDS: AMLODIPINE 5MG TABLET 2.5 MG PO (07:59)
[2024-01-03 08:00] VITALS: BP 137/72; PULSE 62; PULSE 70; RESP 12; TEMP 36; O2SAT 97
[2024-01-03 10:00] VITALS: BP 152/82
--- NOTE | 2024-01-03 10:32 | P.DS_ITS ---
General Admission date:: 01/01/24 Discharge date: 01/03/24 HPI HPI HPI: 73-year-old female patient with PMH of HTN who is admitted to the hospital for malignant HTN following one week of an intractable headache associated with fluctuating blood pressures that she was attempting to manage at home with her own dosage of amlodipine and Bystolic. The patient reports that she stopped taking amlodipine approximately 4 months ago of her own volition because she felt fine . She reports monitoring her blood pressure at home when she feels like she should, she does not keep a record and cannot recall what her blood pressures have been when she makes the adjustments to her doses. 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 She also states that the amlodipine contributes to her anxiety and makes my legs shake . The patient reports seeing an integrative medicine provider in [place] but does not have a PCP and has not seen one for a while . Hospital Course Hospital Course Hospital Course: 73-year-old female who presented with malignant hypertension. Case discussed with ER physician, request admission for management and monitoring, Medicine agreed to admit. Was initiated on nicardipine with good response in blood pressure. By the time she got to the floor, nicardipine was discontinued. Resumed home regimen with amlodipine. Improvement in blood pressure with systolics less than 160. After much discussion, resumed patient's beta-kalee. Patient had no symptoms of chest pain or shortness of breath. Previous history with extensive workup including cath and echo all normal within the past 5 years. Patient appropriate to discharge home with close follow-up with cardiology as an outpatient for further management. Problems addressed as follows: Malignant HTN Bradycardia -Presented with severe hypertension systolics 220-240. Was having some dizziness and blurry vision. Initiated on nicardipine. Had quick response with improvement in blood pressure. Drip was stopped after just a few hours. Patient was transition to oral therapy with her home regimen including amlodipine and carvedilol as formulary conversion for home nebivolol. Blood pressure should significant improvement. Had a slight bump in troponins suspected to be from supply/demand mismatch. Extensive review of patient's chart shows that she has previously had a heart cath in April 2019 with clean coronaries at [facility]. Previous echo at our facility with normal architecture and function. Patient is a non-smoker. Was initiated on aspirin. Troponin improved. EKGs obtained showing no STEMI. In light of findings, patient was monitored for 48 hours. Had no issues on telemetry. Stable to discharge home with close follow-up in the next 2 to 3 days with cardiology as an outpatient for further management. Patient stated comfort with this plan. Of note, CT head and neck reviewed with no large vessel stenosis, occlusion, intracranial findings. Did have mild left internal carotid proximal cervical segment stenosis, no clinically significant findings however. Continue amlodipine 2.5 mg daily, nebivolol 5 mg twice daily, aspirin 81 mg daily. Follow-up with cardiology in 2 to 3 days. Counseled that if her blood pressure goes above 160, to double her amlodipine to 5 mg daily. -TSH evaluated and normal at 3.5. Kidney function normal. Anxiety 0.5mg Ativan once during admission. Patient would benefit from longer acting anxiolytic/depression medication. 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 Defer management to PCP. Informed patient to please have this discussion with her primary care so they can monitor her tolerance of medication as she has side effects and weird responses to medications per her report. Will need close follow-up and adjustment of dosing. Would consider SSRI as first- line. Total time spent on discharge 36 minutes in counseling, documentation, chart review, and direct care with patient. Exam Data for Last 24 hours Vital signs and Labs for Last 24 Hours: Temp Pulse Resp BP Pulse Ox O2 Del Method 98.3 F 32 L 14 145/66 H 96 Room Air 01/02/24 03:46 01/02/24 06:06 01/02/24 06:00 01/02/24 06:00 01/02/24 06:00 01/02/24 06:47 Laboratory Results - last 24 hr 01/01/24 15:35: POC Glucose 130 H 01/01/24 16:22: WBC 8.6, RBC 4.70, Hgb 15.3, Hct 42.9, MCV 91.2, MCH 32.5 H, MCHC 35.7 H, RDW 13.4, Plt Count 227, MPV 8.2, Neut % (Auto) 71.9, Lymph % (Auto) 21.6, Morrison % (Auto) 4.5, Eos % (Auto) 1.1, Baso % (Auto) 0.8, Neut # (Auto) 6.2, Lymph # (Auto) 1.9, Morrison # (Auto) 0.4, Eos # (Auto) 0.1, Baso # (Auto) 0.1, Sodium 140, Potassium 4.2, Chloride 103, Carbon Dioxide 27, Anion Gap 14.2, BUN 31 H, Creatinine 1.00, Estimated Creat Clear 48, Estimated GFR 55 L, Est GFR ( Amer) 66, Glucose 113 H, Calcium 10.1, Total Bilirubin 0.7, AST 42 H, ALT 29, Alkaline Phosphatase 86, Troponin I < 0.01, Total Protein 7.9, Albumin 5.0, Globulin 2.9, Albumin/Globulin Ratio 1.7, HIV 1&2 Antibody Rapid Nonreactive 01/02/24 05:42: WBC 7.8, RBC 4.51, Hgb 14.5, Hct 42.6, MCV 94.3, MCH 32.2 H, MCHC 34.2, RDW 13.2, Plt Count 205, MPV 8.2, Neut % (Auto) 59.6, Lymph % (Auto) 31.8, Morrison % (Auto) 6.2, Eos % (Auto) 1.8, Baso % (Auto) 0.6, Neut # (Auto) 4.7, Lymph # (Auto) 2.5, Morrison # (Auto) 0.5, Eos # (Auto) 0.1, Baso # (Auto) 0.1, Sodium 140, Potassium 4.0, Chloride 107, Carbon Dioxide 26, Anion Gap 11.0, BUN 26 H, Creatinine 1.00, Estimated Creat Clear 46, Estimated GFR 55 L, Est GFR ( Amer) 66, Glucose 83 D, Calcium 9.2, Magnesium 2.2, Total Bilirubin 0.7, AST 33, ALT 23, Alkaline Phosphatase 66, Total Protein 6.3, Albumin 4.1 D, Globulin 2.2, Albumin/Globulin Ratio 1.9 H, TSH 3.46 I & O for Last 24 hours: Intake & Output 12/30/23 12/31/23 01/01/24 01/02/24 23:59 23:59 23:59 23:59 Intake Total Output Total 0 / 0 Balance 0 / 0 Weight 56.608 kg 56.109 kg Constitutional Constitutional: no acute distress, thin and cooperative *Routine HEENT Exam Head: Present normocephalic Eye: Present EOMI and PERRL ENT: Present mucous membranes moist *Routine Neck Exam Neck: Present supple; Absent lymphadenopathy *Routine Respiratory Exam Respiratory: Present CTA bilaterally; Absent rhonchi, stridor, wheezes or crackles *Routine Cardiovascular Exam Cardiovascular: Present bradycardia; Absent murmur Comments: Regular rhythm *Routine Abdominal Exam Abdominal: Present soft and normoactive bowel sounds; Absent tenderness *Routine Rectal Exam Patient deferred: visual exam *Routine Exam Patient deferred: external exam *Routine Extremities Exam Extremities: Absent cyanosis, clubbing or edema *Routine Skin Exam Skin: Present warm; Absent rash *Routine Neurological Exam Neurological: Present alert, oriented X3 and moving all extremities; Absent altered mental status or abnormal gait Results Data Completed and Pending Labs on day of discharge: Labs from last 24 hours 01/02/24 01/01/24 01/01/24 05:42 16:22 15:35 WBC 7.8 8.6 RBC 4.51 4.70 Hgb 14.5 15.3 Hct 42.6 42.9 MCV 94.3 91.2 MCH 32.2 H 32.5 H MCHC 34.2 35.7 H RDW 13.2 13.4 Plt Count 205 227 MPV 8.2 8.2 Neut % (Auto) 59.6 71.9 Lymph % (Auto) 31.8 21.6 Morrison % (Auto) 6.2 4.5 Eos % (Auto) 1.8 1.1 Baso % (Auto) 0.6 0.8 Neut # (Auto) 4.7 6.2 Lymph # (Auto) 2.5 1.9 Morrison # (Auto) 0.5 0.4 Eos # (Auto) 0.1 0.1 Baso # (Auto) 0.1 0.1 Sodium 140 140 Potassium 4.0 4.2 Chloride 107 103 Carbon Dioxide 26 27 Anion Gap 11.0 14.2 BUN 26 H 31 H Creatinine 1.00 1.00 Estimated Creat Clear 46 48 Estimated GFR 55 L 55 L Est GFR ( Amer) 66 66 Glucose 83 D 113 H POC Glucose 130 H Calcium 9.2 10.1 Magnesium 2.2 Total Bilirubin 0.7 0.7 AST 33 42 H ALT 23 29 Alkaline Phosphatase 66 86 Troponin I < 0.01 Total Protein 6.3 7.9 Albumin 4.1 D 5.0 Globulin 2.2 2.9 Albumin/Globulin Ratio 1.9 H 1.7 TSH 3.46 HIV 1&2 Antibody Rapid Nonreactive DS: Diagnosis Discharge Diagnosis (1) Hypertensive emergency: Status: Acute Code(s): I16.1 - Hypertensive emergency (2) Sinus bradycardia: Status: Chronic Code(s): R00.1 - Bradycardia, unspecified (3) Anxiety: Status: Acute Code(s): F41.9 - Anxiety disorder, unspecified Meds Home Medications and Allergies Home Medications ?Medication ?Instructions ?Recorded ?Confirmed ?Type amlodipine 5 mg tablet (Norvasc) 2.5 mg PO DAILY 08/17/23 01/02/24 History aspirin 81 mg tablet,delayed 81 mg PO DAILY 30 days #30 tabs 01/03/24 Rx release nebivolol 10 mg tablet 10 mg PO DAILY 30 days #30 tabs 01/03/24 Rx New Prescriptions to Start Prescriptions: aspirin Neo Lloyd nebivolol Neo Lloyd Allergies Allergy/AdvReac Type Severity Reaction Status Date / Time No Known Allergies Allergy Verified 08/17/23 10:10 Discharge Plan Disposition Patient Disposition: Home, Self-Care Follow up Plan Follow up with: Gill Kunz APRN [Nurse Practitioner] - Enter time for follow up (please call for appointment) Segundo Iyer MD [Staff Physician] - 2 days (please call for follow up) Prescriptions/Medication Reconciliation: New aspirin 81 mg Tablet,Delayed Release (Dr/Ec) 81 mg PO DAILY 30 Days Qty: 30 0RF Continued amlodipine [Norvasc] 5 mg tablet 2.5 mg PO DAILY Changed nebivolol 10 mg tablet 10 mg PO DAILY 30 Days Qty: 30 0RF Problem Reconciliation Problems Reviewed?: Yes Patient Discharge Instructions ACTIVITY: Continue current activity DIET: continue same diet Patient Instructions: High Blood Pressure Print Language: [place] Providers Primary Care Provider: Provider,Referral Admit Provider: Neo Lloyd Attending Provider: Neo Lloyd
[2024-01-03 12:00] VITALS: PULSE 50
--- NOTE | 2024-01-04 10:39 | SW/DCPLANNER ---
Spoke with patient on the phone and patient stated that things are going well and that she has a cardiology appointment tomorrow 01/05/24. Patient stated that she was able to get her medicine filled and that she has no concerns or questions at this time. Krista GONSALEZ Roll Up Guider Operator
== END 2024-01-03 12:46 | disposition home or self-care (01) ==
LOC: UTC 16:00 → ER 16:05 → 2ND 19:39
PROVIDERS: Nurse Practitioner; Admitting Provider Internal Medicine Adolescent Medicine; Emergency Provider Emergency Medicine; Visit Provider Internal Medicine Adolescent Medicine
DX: I10 Essential (primary) hypertension (principal); R00.1 Bradycardia, unspecified; F41.9 Anxiety disorder, unspecified; Z79.899 Other long term (current) drug therapy; T46.1X6A Underdosing of calcium-channel blockers, initial encounter; Z91.128 Patient's intentional underdosing of medication regimen for other reason
CPT/HCPCS: 36415; 70450; 70496; 70498; 80053; 82962; 83735; 84443; 84484; 85025; 86803; 87389; 93005; 99221; 99291; G0378; J2404; Q9967

== ENCOUNTER 2024-03-04 08:16 | Outpatient (CLI) | payer MEDICARE, OTHER, SELFPAY ==
[2024-03-04 09:06] LABS: Basophils % 0.7 % (0.1-2.0); Eosinophils # 0.1 K/mm3 (0.0-0.4); Eosinophils % 2.2 % (0.1-12.0); Hematocrit 39.4 % (37.0-47.0); Hemoglobin 13.1 g/dL (12.2-16.2); Lymphocytes # 1.5 K/mm3 (0.7-4.5); Lymphocytes % 24.5 % (10-50); Mean Corpuscular HGB Conc 33.2 g/dL (31.8-35.4); Mean Corpuscular Hemoglobin 31.6 pg (27.0-31.2); Mean Corpuscular Volume 95.2 fl (81-99); Mean Platelet Volume 10.4 fl (7.4-10.4); Monocytes # 0.4 K/mm3 (0.1-1.0); Monocytes % 6.3 % (1.7-9.3); Platelet Count 199 K/mm3 (142-424); Red Blood Count 4.14 M/mm3 (4.20-5.40); Red Cell Distribution Width 12.2 % (11.5-17.5)
[2024-03-04 09:23] LABS: D-Dimer 0.47 ug/mL (0.0-0.5)
[2024-03-04 09:57] LABS: Uric Acid 3.9 mg/dl (2.5-6.2)
[2024-03-04 09:57] LABS: Alanine Aminotransferase 23 U/L (12-78); Albumin Level 4.2 g/dl (3.5-5.0); Alkaline Phosphatase 64 U/L (38-126); Anion Gap 7.2 mEq/L (5-15); Aspartate Amino Transferase 31 U/L (14-36); Bilirubin,Direct 0.1 mg/dl (0.0-0.4); Bilirubin,Indirect 0.7 mg/dL (0.0-0.9); Bilirubin,Total 0.8 mg/dl (0.2-1.3); Bilirubin,Unconjugated 0.7 mg/dL (0.0-1.1); Blood Urea Nitrogen 25 mg/dl (7-17); Calcium 9.4 mg/dl (8.4-10.2); Carbon Dioxide 29 mmol/L (22.0-30.0); Chloride 104 mmol/L (98-107); Chol/HDL Ratio 4.5 (1-3.5); Cholesterol 281 mg/dl (140-200); Estimated Glomerular Filt Rate 49 ml/min (>60); GFR (African American) 59 ML/MIN (>60); Glucose 88 mg/dl (74-100); HDL Cholesterol 63 mg/dl (40-60); Magnesium 2.3 mg/dl (1.6-2.3); Potassium 4.2 mmoL/L (3.5-5.1); Sodium 136 mmol/L (136-145); Total Protein,Serum 6.2 g/dl (6.3-8.2); Triglycerides 93 mg/dl (30-150); VLDL Cholesterol 19 mg/dL (0-40)
[2024-03-04 10:03] LABS: C-Reactive Protein 0.3 mg/L (0-4)
[2024-03-04 10:06] LABS: Hemoglobin A1C 5.3 % (4.0-6.0)
[2024-03-04 10:08] LABS: Direct LDL Cholesterol 161.73 mg/dL (100-129)
[2024-03-04 10:28] LABS: Thyroid Stimulating Hormone 2.99 uIU/mL (0.465-4.68)
[2024-03-04 11:54] LABS: Fibrinogen 253 mg/dL (208.1-352.0)
[2024-03-05 08:21] LABS: Homocyst(e)ine 10.8 umol/L (0.0-19.2)
[2024-03-08 10:53] LABS: Miscellaneous Test SCANNED IMAGE
[2024-03-11 09:38] LABS: Alanine Aminotransferase 23 U/L (12-78); Albumin Level 4.4 g/dl (3.5-5.0); Alkaline Phosphatase 71 U/L (38-126); Aspartate Amino Transferase 35 U/L (14-36); Bilirubin,Direct 0.1 mg/dl (0.0-0.4); Bilirubin,Indirect 0.6 mg/dL (0.0-0.9); Bilirubin,Total 0.7 mg/dl (0.2-1.3); Bilirubin,Unconjugated 0.6 mg/dL (0.0-1.1); Total Protein,Serum 6.4 g/dl (6.3-8.2)
== END 2024-03-04 23:59 | disposition home or self-care (01) ==
LOC: LAB 08:19
PROVIDERS: PCP Nurse Practitioner Family; Visit Provider Nurse Practitioner
DX: I10 Essential (primary) hypertension (principal); Z86.79 Personal history of other diseases of the circulatory system; R94.31 Abnormal electrocardiogram [ECG] [EKG]; R00.1 Bradycardia, unspecified; R53.83 Other fatigue
CPT/HCPCS: 36415; 80048; 80061; 80076; 83036; 83090; 83704; 83735; 84439; 84443; 84550; 85025; 85378; 85384; 86140

== ENCOUNTER 2024-03-16 10:56 | Outpatient (CLI) | payer MEDICARE, OTHER, SELFPAY ==
--- NOTE | 2024-03-16 | CA_ITS ---
APPROVED REPORT Exam: Exercise Treadmill Technologist: Angella Piper Ht: 5 ft 6 in Wt: 130 lbs BSA: 1.67 m2 HR: 51 bpm BP: 160/69 mmHg Stress Test Details Test: Exercise stress testing was performed using a Venancio protocol. HR Resting HR: 51 bpm Max Heart Rate (APMHR): 149 bpm Max HR Achieved: 126 bpm Target HR (85% APMHR): 127 bpm % of APMHR: 85 Recovery HR: 65 bpm HR response to stress: Normal HR response to stress BP Resting BP: 160.0/69.0 mmHg Max BP: 172.0/78.0 mmHg Recovery BP: 167.0/65.0 mmHg BP response to stress: Normal blood pressure response to stress. ECG Resting ECG: Sinus rhythm, PACs Clinical Exercise duration: 9:03 min Exercise capacity: 10.3 METs Overall Exercise Capacity for Age: good Stress ECG Conclusion Symptoms: None Arrhythmias/Ectopy: Baseline EKG sinus rhythm with PACs. Exercise sinus rhythm with PACs and PVC. ST-T Changes: < 0.[address] depression. Conclusion: No evidence of ischemia at peak stress on ECG Myoview images reported separately. Electronically signed by : Florina Iyer MD 03/16/2024 23:57:23
--- NOTE | 2024-03-16 11:01 | CA_ITS ---
APPROVED REPORT EXAM: Comprehensive 2D, Doppler, and color-flow Echocardiogram Molder Machine Tender: Bel Frances RDCS Ht: 5 ft 6 in Wt: 130lbs BSA: 1.67 BP: 150/61 mmHg Indications: ABN EKG,BRADYCARDIA,PALPS M-Mode Dimensions RVDd 2.62 cm (0.9-2.6) LA Diam 4.41 cm (1.9-4.0) LVDd 4.70 cm (3.5-5.7) LVDs 2.87 cm (3.5-5.7) IVSd 0.86 cm (0.6-1.1) PWd 0.75 cm (0.6-1.1) EF (Teich) 69.30% FS 38.90% EDV (Teich) 102.40 mL TAPSE 2.80 (<1.7) ESV (Teich) 31.40 mL LV Diastology E Decel Time 190 (160-240 msec) E/A Ratio 1.4 Mitral Valve MV E Max Jeevan. 80.0 (40-130 cm/s) MV A Velocity 59.0 (40-130 cm/s) E/A Ratio 1.35 MV PHT 56.0 ms Tricuspid Valve TR P. Velocity 268.00 cm/s RAP Estimate 10.00 mmHg RVSP 38.70 mmHg Left Ventricle The left ventricle is normal size. The left ventricular systolic function is normal. The left ventricular ejection fraction is within the normal range. There is normal left ventricular wall thickness. There is normal LV segmental wall motion. The left ventricular diastolic function is normal. LVEF is 55%. Right Ventricle The right ventricle is normal size. The right ventricular systolic function is normal. Atria The left atrium is mildly dilated. The right atrium is mildly dilated. There is no Doppler evidence of interatrial shunt. Aortic Valve The aortic valve is mildly thickened. There is no aortic valvular stenosis. No aortic regurgitation is present. Mitral Valve The mitral valve is normal in structure. No evidence of mitral valve stenosis. Trace mitral regurgitation. Tricuspid Valve Tricuspid valve is grossly normal in structure and function. Mild tricuspid regurgitation. RVSP is normal. Pulmonic Valve The pulmonary valve is normal in structure. Trace pulmonic regurgitation. Great Vessels The aortic root is normal in size. The ascending aorta is not well-visualized. IVC is normal in size and collapses >50% with inspiration. Pericardium There is no pericardial effusion. Other Information Study Quality: Fair Conclusion Normal biventricular systolic function. Mild TR. Electronically signed by : Florina Iyer MD 03/21/2024 11:56:25
--- NOTE | 2024-03-16 11:26 | NM_ITS ---
APPROVED REPORT Exam: Nuclear Stress Test Indication: dysrhythmia, htn, hyperlipidemia, fatigue, abn ekg Patient Location: Outpatient Stress Tech: Angella Piper [place] Tech:Matilde Benitez TAYLOR RT (R)(N)(M) Ht: 5 ft 6 in Wt: 130 lbs Bra Size: b HR: 62 bpm BP: 160/69 mmHg BSA: 1.67 m2 TID: 1.03 BMI: 20.9 History: dysrhythmia, htn, hyperlipidemia, fatigue, abn ekg Procedure: Patient exercised on Venancio protocol 9:00 minutes and sec, resting heart rate 62 bpm, resting blood pressure 160/69 mmHg, with exercise maximum heart rate achived was 125 bpm which is 83 % of the maximum predicted heart rate and blood pressure was 172/78 mmHg. Test was stopped due to fatigue. Patient denied any complaint of chest pain. Patient has Good exercise capacity, achieved 10.3 METs of workload on treadmill, the blood pressure response to exercise was Normal. Cardiac Stress and Resting SPECT Images: Cardiac Stress and Resting SPECT images were obtained using technetium 99m Myoview 31.3 mCi stress and 10.1 mCi at rest. Resting and stress imaging in supine and prone positions demonstrate no evidence of fixed or reversible perfusion defects. Gated imaging demonstrates normal global and regional LV systolic function. LVEF is calculated at 64%. Conclusion: No evidence of fixed or reversible perfusion defects. Gated imaging demonstrates normal global and regional LV systolic function. LVEF is calculated at 64%. Electronically signed by : Florina Iyer MD 03/16/2024 23:51:29
[2024-03-16] MEDS: ISOTOPE MYOVIEW (PER STUDY) 1 DOSE IV (14:16)
[2024-03-16] MEDS: SODIUM CHLORIDE 0.9% 10ML SYR (RAD ONLY) 10 ML IV ×2 (14:16)
== END 2024-03-16 23:59 | disposition home or self-care (01) ==
LOC: RT 10:58
PROVIDERS: PCP Nurse Practitioner Family; Visit Provider Nurse Practitioner
DX: I36.1 Nonrheumatic tricuspid (valve) insufficiency (principal); R94.31 Abnormal electrocardiogram [ECG] [EKG]; I10 Essential (primary) hypertension; R00.1 Bradycardia, unspecified; R53.83 Other fatigue; Z86.79 Personal history of other diseases of the circulatory system
CPT/HCPCS: 78452; 93017; 93018; 93306; A9502